=== PATIENT | male | born 1955 | race Caucasian/White ===

== ENCOUNTER 2025-07-29 15:06 | Observation (INO) ==
[2025-07-29] MEDS ORDERED: XYLOCAINE 2 % (PLAIN) ONE (16:36)
[2025-07-29] MEDS ORDERED: NovoLIN R (or HumuLIN R) SUBCUT PRN (19:22)
[2025-07-29 19:54] VITALS: BMI 24.8
[2025-07-29] MEDS: SNACK - Diabetic Appropriate PO SCH (20:10)
[2025-07-29] MEDS: BACTRIM DS TAB PO SCH (20:11)
--- NOTE | 2025-07-29 23:50 | DR.H&P ---
H&P History & Physical for Day of: H&P Date: 07/29/25 Chief Complaint Chief Complaint: rest pain right leg History of Present Illness History of Present Illness: This is a 69-year-old male who was referred by Dr. Fallon for rest pain of the right leg with nonhealing wound to the right great toe. Patient is diabetic. 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 No obvious significant disease of the left leg in regards to arterial structures. Past Medical History Past Medical History: Coronary Artery Disease, Diabetes, Dyslipidemia and Hypertension Past Surgical History Surgical History: CABG/Valve Surgery (CABG X 4) Family History Family Medical History: Diabetes Mellitus and Coronary Artery Disease Social History Does patient currently use any type of tobacco product: Yes Type of Tobacco Use: Smokeless Alcohol Use: Occasionally Drug Use: None Medications Home Medications: Home Medications Medication Instructions Recorded Confirmed Type aspirin 81 mg tablet 81 mg PO DAILY 07/29/2507/04 History atorvastatin 80 mg tablet 80 mg PO QDAY 07/29/2507/29 History empagliflozin 25 mg tablet 25 mg PO QAM 07/29/2507/29 History (Jardiance) glimepiride 4 mg tablet 4 mg PO QDAY 07/29/25 History metformin 500 mg tablet,extended 1,000 mg PO BID 07/2907/29/25 History release 24 hr metoprolol tartrate 25 mg tablet 50 mg PO DAILY 07/29/25 History mupirocin 2 % topical ointment 1 applic topical TID 07/29/25 History sulfamethoxazole 800 1 tab PO BID 07/29/25 History mg-trimethoprim 160 mg tablet Allergies Allergies Allergy/AdvReac Type Severity Reaction Status Date / Time codeine Allergy Verified 07/29/25 18:13 Labs Labs: Laboratory POC Glucose (mg/dL) 118 mg/dL (65-99) H 07/29/25 20:58 Review of Systems Constitutional: See HPI Eyes: No Symptoms Reported ENT: No Symptoms Reported Respiratory: No Symptoms Reported Cardiovascular: See HPI Gastrointestinal: No Symptoms Reported Genitourinary: No Symptoms Reported Musculoskeletal: No Symptoms Reported Skin: See HPI Neurological: No Symptoms Reported Physical Exam Vital Signs: Vital Signs Temperature 98.0 F Temperature 97.5 F Pulse Rate [Bilateral Radial] 65 Pulse Rate [Bilateral Radial] 72 Respiratory Rate 18 Respiratory Rate 16 Blood Pressure [Right Arm] 158/79 Blood Pressure [Left Arm] 154/70 O2 Sat by Pulse Oximetry 97 O2 Sat by Pulse Oximetry 91 Oriented: Normal, Time, Person and Place Eyes: Normal Ear: Normal Nose: Normal Throat: Normal Respiratory: Clear Throughout Cardiovascular: Normal : Normal Auscultation: Bowel Sounds: Normal Palpation: Normal Tenderness: Normal Skin: Wound (6mmx 4mm x 1mm to plantar right plantar right great toe ) Musculoskeletal: Normal Psychiatric: Normal Mood Description: Calm Affect: Normal Speech Pattern: Clear and Appropriate Assessment/Plan (1) Diabetes: Status: Acute Plan: Sliding scale insulin (2) CAD (coronary artery disease) of artery bypass graft: Status: Acute Plan: Stable (3) Essential (primary) hypertension: Status: Acute Plan: Home medications (4) Dyslipidemia: Status: Acute Plan: Home medications (5) Critical limb ischemia of right lower extremity: Status: Acute Plan: Will plan aortogram, arteriogram lower extremity with possible atherectomy possible angioplasty possible stenting of the right popliteal artery occlusion and possibly of the right superficial femoral artery as well Review H&P Reviewed: Yes Patient was examined?: Yes
[2025-07-30] MEDS: LR 1,000 ML IV 1,000 ML IV SCH (00:17)
[2025-07-30] MEDS: HIBICLENS WASH EXT ONE (04:19)
--- NOTE | 2025-07-30 06:24 | RAD ---
EXAM: Portable chest HISTORY: Preop vascular surgery COMPARISON: None FINDINGS: Patient is status post median sternotomy and CABG. Heart size is normal. Angelina are normal. Lung gonzalez are clear. No pleural effusions are identified. No pneumothorax identified. Bony thorax unremarkable. IMPRESSION: No significant abnormality identified THIS IS AN ELECTRONICALLY VERIFIED FINAL REPORT 07/30/2025 6:20 AM - Electronically signed by Gerson Powell MD
[2025-07-30 06:42] LABS: MEAN PLATELET VOLUME 8.4 fL (7.4-11.0); RED CELL DISTRIBUTION WIDTH 15.3 % (11.6-16.5)
[2025-07-30 06:52] LABS: COR CA(FOR HYPOALB) 8.7 mg/dL (8.5-10.1); CREATININE 0.57 mg/dL (0.70-1.30); eGFR NON BLACK RACES > 60 (>60)
[2025-07-30 07:04] LABS: PLATELET MORPHOLOGY COMMENT NORMAL (NORMAL)
[2025-07-30] MEDS ORDERED: CONSULT PHARMACY - POTASSIUM & MAGNESIUM XX SCH (08:00)
[2025-07-30] MEDS: TOPROL XL PO SCH (08:12)
[2025-07-30] MEDS: K-RIDER 10 MEQ/100 ML WATER 10 MEQ/100 ML BAG IV SCH (08:13)
[2025-07-30] MEDS: LIPITOR TAB 80 MG PO SCH (12:08)
[2025-07-30] MEDS: ASPIRIN EC 81 MG PO SCH (12:08)
--- NOTE | 2025-07-30 13:58 | EKG ---
Test Reason : pre-op Blood Pressure : */* mmHG Vent. Rate : 66 BPM Atrial Rate : 66 BPM P-R Int : 142 ms QRS Dur : 126 ms QT Int : 440 ms P-R-T Axes : 59 -40 56 degrees QTc Int : 461 ms Normal sinus rhythm Left axis deviation Left bundle branch block Abnormal ECG No previous ECGs available Confirmed by Rich Barahona MD ([id number]) on 07/31/2025 6:40:38 AM Referred By: Confirmed By: Rich Barahona MD
[2025-07-30] MEDS: VERSED ONE (15:00)
[2025-07-30] MEDS: KETAMINE HCL ONE (15:00)
[2025-07-30] MEDS: FENTANYL VIAL INJ 100 mcg ONE (15:00)
[2025-07-30] MEDS: ZOFRAN INJ 4 MG VIAL ONE (15:01)
[2025-07-30] MEDS: DIPRIVAN VIAL 20 ML ONE ×2 (15:01→17:37)
[2025-07-30] MEDS: OFIRMEV IV 1000 MG VIAL 1,000 MG/100 ML VIAL IV ONE (15:01)
[2025-07-30] MEDS: REGLAN INJ 10 MG VIAL ONE (15:01)
[2025-07-30] MEDS: HEPARIN SODIUM INJ 5000 UNITS ONE (15:01)
[2025-07-30] MEDS: DECADRON INJ ONE (15:01)
[2025-07-30] MEDS: PRECEDEX INJ VIAL ONE (15:05)
[2025-07-30] MEDS: LR 1,000 ML IV 1,000 ML IV ONE (15:47)
[2025-07-30] MEDS: NS 100 ML IV 100 ML ONE (15:47)
[2025-07-30] MEDS: ANCEF VIAL 1 GRAM ONE (15:48)
[2025-07-30] MEDS: PEPCID 20 MG VIAL ONE (15:59)
[2025-07-30] MEDS: LR 1,000 ML IV 900 ML IV PRN (16:00)
[2025-07-30] MEDS: ZOFRAN INJ 4 MG VIAL IVP PRN (16:02)
[2025-07-30] MEDS: PEPCID 20 MG VIAL IVP PRN (16:03)
[2025-07-30] MEDS: REGLAN INJ 10 MG VIAL IVP PRN (16:04)
[2025-07-30] MEDS: ANCEF VIAL 1 GRAM IV PRN (16:06)
[2025-07-30] MEDS: VERSED IVP PRN (16:07)
[2025-07-30] MEDS ORDERED: XYLOCAINE 2 % (PLAIN) PRN (16:09)
[2025-07-30] MEDS: DIPRIVAN VIAL 240 ML IVP PRN (16:10)
[2025-07-30] MEDS: PRECEDEX INJ VIAL IVP PRN (16:10)
[2025-07-30] MEDS: KETAMINE HCL IVP PRN (16:10)
[2025-07-30] MEDS: OFIRMEV IV 1000 MG VIAL 1,000 MG/100 ML VIAL IV PRN (16:19)
[2025-07-30] MEDS: DECADRON INJ IVP PRN (16:21)
[2025-07-30] MEDS: FENTANYL VIAL INJ 100 mcg IVP PRN (16:22)
[2025-07-30] MEDS: HEPARIN 1,000 UNIT/500 ML-NS 3,000 UNIT/1,500 ML IV.SOLN ONE (16:26)
[2025-07-30] MEDS: VISIPAQUE 50 ML ONE (16:26)
[2025-07-30] MEDS: VISIPAQUE 100 ML ONE (16:26)
[2025-07-30] MEDS: MARCAINE 0.5% ONE (16:26)
[2025-07-30] MEDS ORDERED: HEPARIN SODIUM INJ 5000 UNITS IVP PRN (16:27)
[2025-07-30] MEDS: EPHEDRINE SULFATE INJ IVP PRN (16:38)
--- NOTE | 2025-07-30 17:26 | OR.IMMED ---
IMMEDIATE POST-OP NOTE Immediate Post-Op Note Date of surgery/procedure: 07/30/25 Pre-Op Diagnosis: Critical ischemia right leg, right popliteal artery occlusion, 50% stenosis of the right superficial femoral artery distally Post-Op Diagnosis: Same, see findings below Procedure: Aortogram, atherectomy and drug-coated balloon angioplasty of the right popliteal artery and distal superficial femoral artery Description of Procedure: dictated Surgeon/Policy And Planning Manager: Kaleb Findings: Complete occlusion of the right popliteal artery with two-vessel runoff via the peroneal and posterior tibial artery, occluded anterior tibial artery after its takeoff, significant disease of the distal right superficial femoral artery Estimated Blood Loss: 100cc Complications: none
[2025-07-30] MEDS: EPHEDRINE SULFATE INJ ONE (17:37)
[2025-07-30] MEDS ORDERED: KETAMINE HCL ONE (17:54)
--- NOTE | 2025-07-30 17:59 | W.DIS.FURT ---
Summary of Discharge Discharge Summary of Date Date of Exam: 07/30/25 Admission Date Date of Admission: 07/29/25 Admission Diagnosis Hospital Course: This is a 69-year-old male with history of coronary disease status post coronary bypass grafting x 4 in the past who 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 He is diabetic. He does not smoke. CT angiogram showed evidence of possible 50% stenosis of the distal right superficial femoral artery and complete occlusion of the popliteal artery over a short segment. He was admitted and taken to the operative suite the next day and we performed on table arteriogram and aortogram with atherectomy and drug-coated balloon angioplasty of the popliteal artery complete occlusion and of the distal right superficial femoral artery. He has two-vessel runoff of the right leg via the peroneal and posterior tibial arteries. His pain is relieved . He will be discharged home on his usual medications plus Xarelto 2 5 mg twice daily.He will continue his aspirin and his statin. He will schedule a follow-up to see me in 1 week. He will continue antibiotics he was placed on by the shaker screen operator. Vital Signs: Vital Signs (72 hours) 07/29/25 16:50 07/29/25 16:50 07/29/25 17:18 Temperature 97.5 F L Pulse Rate Pulse Rate [Bilateral Radial] 72 Respiratory Rate 16 Blood Pressure Blood Pressure [Left Arm] 154/70 Blood Pressure [Right Arm] O2 Sat by Pulse Oximetry 91 L Oxygen Delivery Method Room Air Room Air Room Air 07/29/25 19:00 07/29/25 20:00 07/29/25 23:48 Temperature 98.0 F 97.6 F Pulse Rate Pulse Rate [Bilateral Radial] 65 70 Respiratory Rate 18 19 Blood Pressure Blood Pressure [Left Arm] Blood Pressure [Right Arm] 158/79 159/81 O2 Sat by Pulse Oximetry 97 97 Oxygen Delivery Method Room Air Room Air Room Air 07/30/25 04:00 07/30/25 07:00 07/30/25 08:00 Temperature 98.0 F 98.1 F Pulse Rate Pulse Rate [Bilateral Radial] 71 72 Respiratory Rate 18 17 Blood Pressure Blood Pressure [Left Arm] Blood Pressure [Right Arm] 154/81 155/75 O2 Sat by Pulse Oximetry 97 96 Oxygen Delivery Method Room Air Room Air Room Air 07/30/25 11:54 07/30/25 15:44 Temperature 97.5 F L Pulse Rate 65 Pulse Rate [Bilateral Radial] 67 Respiratory Rate 17 18 Blood Pressure 155/78 Blood Pressure [Left Arm] Blood Pressure [Right Arm] 144/70 O2 Sat by Pulse Oximetry 95 93 L Oxygen Delivery Method Room Air Room Air Labs: Laboratory Last Values WBC 4.0 X10^3/uL (3.6-10.0) 07/30/25 05:48 RBC 4.30 X10^6/uL (4.7-6.0) L 07/30/25 05:48 Hgb 12.9 g/dL (13.5-18.0) L 07/30/25 05:48 Hct 38.4 % (42.0-54.0) L 07/30/25 05:48 MCV 89.2 fL (80.0-100.0) 07/30/25 05:48 MCH 30.0 pg (27.0-34.0) 07/30/25 05:48 MCHC 33.6 g/dL (33.0-35.0) 07/30/25 05:48 RDW 15.3 % (11.6-16.5) 07/30/25 05:48 Plt Count 136 X10^3/uL (150.0-450.0) L 07/30/25 05:48 Plt Count Comment Decreased (ADEQUATE) 07/30/25 05:48 MPV 8.4 fL (7.4-11.0) 07/30/25 05:48 Neut % (Auto) 48.3 % (42.0-75.0) 07/30/25 05:48 Lymph % (Auto) 34.0 % (21.0-51.0) 07/30/25 05:48 [place] % (Auto) 16.5 % (0.0-13.0) H 07/30/25 05:48 Eos % (Auto) 0.5 % (0.9-2.9) L 07/30/25 05:48 Baso % (Auto) 0.7 % (0.2-1.0) 07/30/25 05:48 Neut # (Auto) 1.9 x10^3/uL (2.2-4.8) L 07/30/25 05:48 Lymph # (Auto) 1.4 X10^3/uL (1.3-2.9) 07/30/25 05:48 [place] # (Auto) 0.7 x10^3/uL (0.3-0.8) 07/30/25 05:48 Eos # (Auto) 0.0 x10^3/uL (0.0-0.2) 07/30/25 05:48 Baso # (Auto) 0.0 X10^3/uL (0.0-0.1) 07/30/25 05:48 Absolute Nucleated RBC 0.1 /100WBC 07/30/25 05:48 Total Counted 100 07/30/25 05:48 Neutrophils % (Manual) 41 % (39-76) 07/30/25 05:48 Lymphocytes % (Manual) 49 % (13-43) H 07/30/25 05:48 Monocytes % (Manual) 10 % (4-9) H 07/30/25 05:48 Plt Morphology Comment Normal (NORMAL) 07/30/25 05:48 RBC Morphology Normal (NORMAL) 07/30/25 05:48 Sodium 139 mmol/L (136-145) 07/30/25 05:48 Corrected Sodium TNP 07/30/25 05:48 Potassium 3.5 mmol/L (3.5-5.1) 07/30/25 05:48 Chloride 106 mmol/L (98-107) 07/30/25 05:48 Carbon Dioxide 24.0 mmol/L (21-32) 07/30/25 05:48 BUN 12 mg/dL (7-18) 07/30/25 05:48 Creatinine 0.57 mg/dL (0.70-1.30) L 07/30/25 05:48 Est GFR (MDRD) Af Amer > 60 (>60) 07/30/25 05:48 Est GFR (MDRD) Non-Af > 60 (>60) 07/30/25 05:48 Glucose 108 mg/dL (65-99) H 07/30/25 05:48 POC Glucose (mg/dL) 72 mg/dL (65-99) 07/30/25 17:29 Calcium 8.0 mg/dL (8.5-10.1) L 07/30/25 05:48 Corrected Calcium 8.7 mg/dL (8.5-10.1) 07/30/25 05:48 Total Bilirubin 0.50 mg/dL (0.2-1.0) 07/30/25 05:48 AST 17 Units/L (15-37) 07/30/25 05:48 ALT 22 Units/L (12-78) 07/30/25 05:48 Alkaline Phosphatase 67 Units/L (46-116) 07/30/25 05:48 Total Protein 6.4 g/dL (6.4-8.2) 07/30/25 05:48 Albumin 3.1 g/dL (3.4-5.0) L 07/30/25 05:48 Globulin 3.3 g/dL (2.5-4.5) 07/30/25 05:48 Albumin/Globulin Ratio 0.9 Ratio (1.1-2.1) L 07/30/25 05:48 Blood Type O POSITIVE 07/30/25 14:01 Antibody Screen Negative 07/30/25 14:01 Reason For Visit: RIGHT LOWER EXT, CRITICAL ISHEMIA Discharge Date Discharge Date: 07/30/25 Discharge Diagnosis All Active Problems (Updated 07/29/25 @ 23:47 by [facility] Manuel) Dyslipidemia (Acute) Essential (primary) hypertension (Acute) CAD (coronary artery disease) of artery bypass graft (Acute) Diabetes (Acute) Critical limb ischemia of right lower extremity (Acute) Plan of Treatment: Continue with present treatment and follow up plan. Pt is to keep follow up appointment as instructed and take medications as ordered. Discharge Medications Discharge Medications: codeine Allergy (Verified 07/29/25 18:13) CONTINUE taking the following medications aspirin 81 mg tablet 81 mg PO DAILY 07/29/25 history atorvastatin 80 mg tablet 80 mg PO QDAY 07/29/25 history empagliflozin 25 mg tablet (Jardiance) 25 mg PO QAM 07/29/25 history glimepiride 4 mg tablet 4 mg PO QDAY 07/29/25 history metformin 500 mg tablet,extended release 24 hr 1,000 mg PO BID 07/29/25 history metoprolol tartrate 25 mg tablet 50 mg PO DAILY 07/29/25 history mupirocin 2 % topical ointment 1 applic topical TID 07/29/25 history sulfamethoxazole 800 mg-trimethoprim 160 mg tablet 1 tab PO BID 07/29/25 history Xarelto 2.5 mg twice daily Discharge Disposition Assessment: see hospital course Discharge Plan Discharge Plan Hospital Course: This is a 69-year-old male with history of coronary disease status post coronary bypass grafting x 4 in the past who 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 He is diabetic. He does not smoke. CT angiogram showed evidence of possible 50% stenosis of the distal right superficial femoral artery and complete occlusion of the popliteal artery over a short segment. He was admitted and taken to the operative suite the next day and we performed on table arteriogram and aortogram with atherectomy and drug-coated balloon angioplasty of the popliteal artery complete occlusion and of the distal right superficial femoral artery. He has two-vessel runoff of the right leg via the peroneal and posterior tibial arteries. His pain is relieved . He will be discharged home on his usual medications plus Xarelto 2 5 mg twice daily.He will continue his aspirin and his statin. He will schedule a follow-up to see me in 1 week. He will continue antibiotics he was placed on by the shaker screen operator. Patient Disposition: 01 HOME, SELF-CARE Condition: Stable Health Concerns: Post Hospitalization: new medications and changes needed to prevent readmission or further decline. Pt educated and given instructions on all concerns. Care Plan Goals: resume usual activity Plan of Treatment: Continue with present treatment and follow up plan. Pt is to keep follow up appointment as instructed and take medications as ordered. Assessment: see hospital course Prescriptions: New rivaroxaban [Xarelto] 2.5 mg tablet 2.5 mg PO BID Qty: 180 0RF Continued atorvastatin 80 mg tablet 80 mg PO QDAY sulfamethoxazole-trimethoprim 800-160 mg tablet 1 tab PO BID glimepiride 4 mg tablet 4 mg PO QDAY aspirin 81 mg Tablet 81 mg PO DAILY mupirocin 2 % ointment 1 applic TOPICAL TID Patient Comments: [NO ORIGINAL SIG] metformin 500 mg tablet extended release 24 hr 1,000 mg PO BID metoprolol tartrate 25 mg tablet 50 mg PO DAILY Jardiance 25 mg tablet 25 mg PO QAM Orders to Discharge Patient Discharge Orders: Discharge (Routine); Ordered 07/30/25 Ordered By: Kaiser Manuel Follow ups/Referrals Follow ups/Referrals: Kaiser Manuel [Primary Care Provider, Unknown] - 1 WEEK Instructions Instructions: Endovascular Therapy for Peripheral Vascular Disease: What to Know After Stand Alone Forms: Excuse From Work or School, Find Help Web Site, Post Hospital Follow Up Care Print Language: SWAZI
--- NOTE | 2025-07-30 18:07 | DR.OPNOTE ---
OP NOTE Pre-Op Diagnosis: Critical ischemia right leg, right popliteal artery occlusion, 50% right SF Post-Op Diagnosis: same, see findingd below Procedure Date Date Of Procedure: 07/30/25 Procedure: PROCEDURE: Diagnostic aortogram, diagnostic arteriogram right leg, atherectomy and drug-coated balloon angioplasty of the right popliteal artery occlusion and severe disease of the right distal superficial femoral artery NARRATIVE: The patient was taken to the operative suite and placed in the supine position. The left groin and entire right leg were prepped and draped in sterile fashion. Patient was given intravenous sedation supervised by myself. Timeout for the procedure obtained. Ultrasound used to identify the femoral artery in the left groin and the skin overlying it infiltrated with 0.5% Marcaine. Ultrasound used to guide puncture of the left femoral artery and a 0.012 inch guidewire placed. Incision made over the guidewire at the skin edge with a #11 knife blade and the micro sheath placed over the guidewire into the femoral artery. Small wire exchanged for a 0.035 inch Advantage Glidewire and the micro sheath exchanged for a 5 [place] vascular sheath. Patient given 5000 units of intravenous heparin. Omni catheter placed over the guidewire into the aorta and power injector used to perform aortogram showing normal iliac arteries and normal aorta. The Omni catheter was then used to direct the guidewire down the right common iliac artery to the distal right external iliac artery. The Omni catheter exchanged for a [place] catheter and sequential arteriograms performed of the right leg showing significant disease of the distal right superficial femoral artery with total occlusion of the right popliteal artery and a short segment approxi-1 inch reconstitution and runoff via the peroneal and posterior tibial arteries. The right anterior tibial artery was occluded after its takeoff. The [place] catheter removed and over the guidewire the 5 [place] sheath was exchanged for a 7 [place] Catpult Sheath which was parked in the proximal right superficial femoral artery. G[place]den catheter and the 0.035 guidewire used to traverse the arteries of the right leg ultimately ending in right peroneal artery.. Gadsden catheter used to exchange 0.035 inch wire for a 0.014 inch Thruway wire. Over this wire we placed the Jetstream atherectomy device and performed atherectomy of the popliteal occlusion and the severe disease of the distal right superficial femoral artery. Both of these areas then dilated with one 6 mm x 200 mm [employer] [place] drug-coated balloon inflated for 3 minutes. After arterial intervention follow-up arteriogram performed showing excellent outcome. Wires and devices removed from the Catapult sheath. This sheath pulled back into the aorta and a 0.035 guidewire placed. Catapult sheath exchanged over the wire for a Angio-Seal device used to close the puncture of the left femoral artery. Patient taken to same-day surgery in good condition. Type of Anesthesia: Local (0.5% Marcaine ) Anesthesia Comment: plus MAC Findings: Diffuse disease of the right distal superficial femoral artery, complete occlusion of a short segment of the right popliteal artery reconstitution and two-vessel runoff via the peroneal and posterior tibial arteries of the right leg. Type of Fluids Used:: Lactated Ringers Total Amount of Fluid Infused:: 900cc Urine output: 300 cc EBL: 100cc Drains/Tubes Placed: None Complications:: none Needle/Sponge Count:: correct Disposition/Condition: Pt. tolerated procedure without difficulty. Taken to [facility] in stable condition.
[2025-07-30 18:11] VITALS: RESP 17
[2025-07-30 18:15] VITALS: BP 160/76; PULSE 70; TEMP 98.2; O2SAT 98
== END 2025-07-30 19:00 | disposition home or self-care (01) ==
LOC: EDBD → MED/SURG
PROVIDERS: ADMIT Surgery; ATTEND Surgery
DX: E11.42 Type 2 diabetes mellitus with diabetic polyneuropathy; D64.89 Other specified anemias; Z01.810 Encounter for preprocedural cardiovascular examination; E11.621 Type 2 diabetes mellitus with foot ulcer; I70.221 Atherosclerosis of native arteries of extremities with rest pain, right leg; I10 Essential (primary) hypertension; Z95.2 Presence of prosthetic heart valve; L97.518 Non-pressure chronic ulcer of other part of right foot with other specified severity; E78.5 Hyperlipidemia, unspecified; I25.810 Atherosclerosis of coronary artery bypass graft(s) without angina pectoris; R94.31 Abnormal electrocardiogram [ECG] [EKG]; E11.65 Type 2 diabetes mellitus with hyperglycemia